=== PATIENT | female | born 1995 | race Caucasian/White ===

== ENCOUNTER 2017-06-24 21:50 | Emergency (ER) | payer MEDICAID, OTHER ==
[~2017-06-24 21:50] MED LIST: Sodium Chloride 0.9% 1,000 ML BAG ONE
[2017-06-24] MEDS ORDERED: Ketorolac Tromethamine 30 MG/ML VIAL ONE (22:11)
[2017-06-24 22:17] LABS: Bilirubin Negative (Negative); Blood, Urine Trace (Negative); Clarity Clear (Clear); Glucose, Urine (Dipstick) Negative (Negative); Leukocyte Trace (Negative); Nitrite Negative (Negative); Protein, Urine (Dipstick) Negative (Neg-Trace); Urobilinogen 0.2 mg/dL (0.2-1.0); pH, Urine 5.5 (5.0-9.0)
[2017-06-24 22:21] LABS: Bacteria/HPF 2+ HPF (None Seen); Pregnancy Test - Urine (BHCG) Negative (Negative)
[2017-06-24 22:22] LABS: Pregu Control Background? CLEAR/WHITE (CLR/WHITE); Pregu Control Bar Appear? YES (CONTROL BAR)
[2017-06-24 22:27] LABS: #Basophils 0.1 thou/uL (0.0-0.2); #Eosinphils 0.3 thou/uL (0.0-0.7); #Lymphocytes 5.6 thou/uL (1.20-3.40); #Monocytes 0.5 thou/uL (0.11-0.59); #Neutrophils 5.4 thou/uL (1.40-6.50); %Eosinophils 2.6 % (0.0-10.0); %Lymphocytes 46.9 % (21.0-51.0); %Monocytes 3.9 % (0.0-10.0); %Neutrophils 45.6 % (42.0-75.0); Hemoglobin 9.9 g/dL (12.0-16.0); Mean Corpuscular HGB CONC 31.1 g/dL (32.0-36.0); Mean Corpuscular Hemoglobin 26.4 pg (27.0-31.0); Mean Corpuscular Volume 84.9 fl (81.0-99.0); Mean Platelet Volume 6.8 fL (7.4-10.4); Platelet Count 349 thou/uL (130-400); RBC Distribution Width 14.9 % (11.5-14.5); Red Blood Cell (RBC) Count 3.77 mill/uL (4.20-5.40); White Blood Cell (WBC) Count 11.9 thou/uL (4.8-10.8)
[2017-06-24] MEDS ORDERED: Ciprofloxacin Lactate/D5W 400 mg/200 ml Premix ONE (22:43)
[2017-06-24] MEDS ORDERED: Tamsulosin HCl 0.4 MG CAP ONE (22:43)
[2017-06-24 22:48] LABS: ALT (SGPT) 14 U/L (8-55); AST (SGOT) 16 U/L (5-34); Albumin 3.7 g/dL (3.5-5.0); Alkaline Phosphatase 87 U/L (40-150); Anion Gap 13 mmol/L (10-20); BUN (Urea Nitrogen) 7 mg/dL (7.0-18.7); Bilirubin, Total Less than 0.3 mg/dL (0.2-1.2); Calc. Creatinine Clearance 0 mL/min (70-130); Calcium 9.1 mg/dL (7.8-10.44); Carbon Dioxide 24 mmol/L (22-29); Chloride 106 mmol/L (98-107); Estimated GFR-MDRD Greater than 90; Globulin 3.4 g/dL (2.4-3.5); Glucose 82 mg/dL (70-105); Lipase 40 U/L (8-78); Potassium 3.6 mmol/L (3.5-5.1); Protein, Total 7.1 g/dL (6.0-8.3); Sodium 139 mmol/L (136-145)
--- NOTE | 2017-06-24 22:58 | CT ---
CT ABDOMEN AND PELVIS NONCONTRAST 06/24/17 HISTORY: Bilateral flank pain. COMPARISON: 11/07/16. FINDINGS: Each renal collecting system, ureter, and urinary bladder are decompressed without stone evident. Lack of contrast limits evaluation for other abnormalities. The gallbladder is surgically absent. IMPRESSION: No CT evident of urinary tract obstruction or calcification. POS: [facility]
== END 2017-06-24 23:52 | disposition home or self-care (01) ==
LOC: MADERS 21:50
DX: N39.0 Urinary tract infection, site not specified (principal); N23 Unspecified renal colic; D64.9 Anemia, unspecified; F41.9 Anxiety disorder, unspecified; F17.210 Nicotine dependence, cigarettes, uncomplicated
CPT/HCPCS: 74176; 80053; 81003; 81015; 81025; 82150; 83690; 85025; 87086; 96365; 96372; J0744; J1885; J7050

== ENCOUNTER 2017-09-30 16:17 | Emergency (ER) | payer MEDICAID ==
[2017-09-30] MEDS ORDERED: Ibuprofen 800 MG TAB ONE (18:05)
[2017-09-30] MEDS ORDERED: traMADol HCl 50 MG TAB ONE (18:05)
--- NOTE | 2017-09-30 18:07 | RAD ---
THREE VIEWS RIGHT WRIST: Date: 09-30-17 History: Right wrist injury. FINDINGS: There is mild ulnar minus configuration. No fracture or dislocation is seen involving the right wrist . IMPRESSION: 1. No acute osseous abnormality right wrist. If patient continues to have pain or if there is clinica l concern for fracture of the navicular bone, follow up views of the wrist are recommended in 4-7 day s to exclude a radiographically occult fracture. 2. Minor ulnar minus configuration. POS: [facility]
== END 2017-09-30 18:10 | disposition home or self-care (01) ==
LOC: MADERS 16:17
DX: S60.211A Contusion of right wrist, initial encounter (principal); F41.9 Anxiety disorder, unspecified; F17.210 Nicotine dependence, cigarettes, uncomplicated; D64.9 Anemia, unspecified; Z87.442 Personal history of urinary calculi; Z79.899 Other long term (current) drug therapy; W31.9XXA Contact with unspecified machinery, initial encounter